=== PATIENT | female | born 1935 | race Caucasian/White ===

== ENCOUNTER 2018-09-13 21:48 | Emergency (ER) | payer MEDICARE, BC ==
[2018-09-13 22:54] LABS: #Basophils 0.1 thou/uL (0.0-0.2); #Eosinphils 0.1 thou/uL (0.0-0.7); #Lymphocytes 3.9 thou/uL (1.20-3.40); #Monocytes 1.4 thou/uL (0.11-0.59); #Neutrophils 8.9 thou/uL (1.40-6.50); %Basophils 0.4 % (0.0-1.0); %Eosinophils 0.5 % (0.0-10.0); %Lymphocytes 27.4 % (21.0-51.0); %Monocytes 9.8 % (0.0-10.0); %Neutrophils 61.9 % (42.0-75.0); Hemoglobin 13.7 g/dL (12.0-16.0); Mean Corpuscular HGB CONC 32.7 g/dL (32.0-36.0); Mean Corpuscular Hemoglobin 31.4 pg (27.0-31.0); Platelet Count 266 thou/uL (130-400); RBC Distribution Width 12.3 % (11.5-14.5); Red Blood Cell (RBC) Count 4.37 mill/uL (4.20-5.40); White Blood Cell (WBC) Count 14.4 thou/uL (4.8-10.8)
[2018-09-13 23:17] LABS: ALT (SGPT) 21 U/L (8-55); AST (SGOT) 20 U/L (5-34); Albumin 4.2 g/dL (3.4-4.8); Alkaline Phosphatase 101 U/L (40-150); Anion Gap 13 mmol/L (10-20); BUN (Urea Nitrogen) 25 mg/dL (9.8-20.1); Bilirubin, Total 0.3 mg/dL (0.2-1.2); CK (CPK) 41 U/L (29-168); Calc. Creatinine Clearance 0 mL/min (70-130); Calcium 10.2 mg/dL (7.8-10.44); Carbon Dioxide 25 mmol/L (23-31); Chloride 107 mmol/L (98-107); Estimated GFR-MDRD 68; Globulin 2.3 g/dL (2.4-3.5); Glucose 126 mg/dL (83-110); Potassium 4.1 mmol/L (3.5-5.1); Protein, Total 6.5 g/dL (6.0-8.3); Sodium 141 mmol/L (136-145)
[2018-09-13 23:49] LABS: Bilirubin Negative (Negative); Blood, Urine Negative (Negative); Clarity CLEAR (Clear); Glucose, Urine (Dipstick) Negative (Negative); Leukocyte Negative (Negative); Nitrite Negative (Negative); Protein, Urine (Dipstick) Negative (Neg-Trace); Specific Gravity, Urine 1.017 (1.002-1.036); Urobilinogen 0.2 mg/dL (0.2-1.0)
[2018-09-13] MEDS ORDERED: cloNIDine 0.1 MG TAB ONE (23:52)
--- NOTE | 2018-09-14 00:41 | CT ---
CT brain. HISTORY: Dizziness. Noncontrast enhanced CT images of the brain obtained from base the skull to the vertex. Brain and bon e windows obtained. CT images demonstrate no evidence of intracranial masses, hemorrhages, strokes or contusions. Ventric les are of normal size. IMPRESSION: normal CT brain.
== END 2018-09-14 01:32 | disposition home or self-care (01) ==
LOC: ERS 21:48
DX: I10 Essential (primary) hypertension (principal); M19.90 Unspecified osteoarthritis, unspecified site; I47.1 Supraventricular tachycardia; F41.9 Anxiety disorder, unspecified; F32.9 Major depressive disorder, single episode, unspecified; Z79.899 Other long term (current) drug therapy
CPT/HCPCS: 36415; 70450; 80053; 81003; 82550; 84484; 85025; 87086; 93005

== ENCOUNTER 2018-10-04 09:16 | Outpatient (CLI) | payer MEDICARE, BC ==
--- NOTE | 2018-10-04 09:43 | SJPRAD ---
Right knee 2 views HISTORY: Right knee pain. FINDINGS: Joint spaces are preserved. Moderate tricompartmental osteophytosis. No acute fracture, dis location, or fluid distention of the suprapatellar bursa. IMPRESSION: Mild osteoarthritic changes right knee
--- NOTE | 2018-10-04 11:29 | SJPRAD ---
RIGHT HIP 2 VIEWS: HISTORY: Pain in right lower extremity. FINDINGS: There are degenerative changes at the right hip. Femoral head contour is normal. No fracture or acu te abnormality is seen. IMPRESSION: No acute abnormality identified. POS: [facility]
== END 2018-10-04 09:17 | disposition home or self-care (01) ==
LOC: MWLC RAD 09:16
PROVIDERS: ATTEND Family Medicine
DX: M79.604 Pain in right leg (principal); M17.11 Unilateral primary osteoarthritis, right knee

== ENCOUNTER 2018-11-08 09:16 | Outpatient (CLI) | payer MEDICARE, BC ==
--- NOTE | 2018-11-08 09:39 | SJPRAD ---
3 VIEWS OF THE LUMBAR SPINE: Date: 11/08/18 COMPARISON: None. HISTORY: Low back pain. FINDINGS: The lateral examination demonstrates normal vertebral body height and alignment. The patient appears status post bilateral L5 laminectomy. There is multilevel disc space narrowing with degenerative endplate change and osteophyte formation w ithin the lumbar spine, most significant at the L1-2, L3-4, and L4-5 levels. There is multilevel lower lumbar spine facet hypertrophy. No acute osseous abnormality is noted. IMPRESSION: Multilevel lumbar spine degenerative change as detailed above. Lower lumbar spine degenerative change as detailed above. Transcribed Date/Time: 11/08/2018 11:16 AM
== END 2018-11-08 09:17 | disposition home or self-care (01) ==
LOC: MWLC RAD 09:16
PROVIDERS: ATTEND Family Medicine
DX: M54.5 Low back pain (principal); M47.816 Spondylosis without myelopathy or radiculopathy, lumbar region; M25.78 Osteophyte, vertebrae

== ENCOUNTER 2018-12-14 12:32 | Outpatient (CLI) | payer MEDICARE, BC ==
--- NOTE | 2018-12-14 14:03 | MRI ---
MRI THORACIC SPINE WITHOUT CONTRAST: HISTORY: Thoracic radiculopathy. COMPARISON: None FINDINGS: Heterogeneous T1 marrow signal intensity due to a combination of senescent change as well as type II Modic changes. Vertebral body height is maintained. No fracture. No significant STIR hyperintensity to suggest vertebral body edema or ligamentous injury. Visualized mediastinum, lung parenchyma, paraspinal muscles/soft tissue are unremarkable. There is an exophytic cyst emanating from the left kidney. The thoracic cord has a normal size and signal intensity. No cord malacia. No cord expansion. No cord T2 hyperintensity. Conus medullaris terminates at the upper aspect of L1. There is evidence of cervical fusion involving C6 and C7, incompletely evaluated. T4-T5: Central disc protrusion. Disc material contacts and deforms the ventral cord. No cord hyperint ensity. Mild to moderate central canal stenosis. T5-T6: Generalized disc bulge. There is mass effect upon the ventral thecal sac and left hemicord. Mi ld central canal stenosis. T6-T7: Generalized disc bulge. Mild central canal stenosis. Neural foramina are patent. T7-T8: Broad-based disc bulge. Mild central canal stenosis. T8-T9 and T9-T10 demonstrate loss of disc space height. No significant central canal stenosis. T10-T11 and T11-T12 demonstrates loss of disc space height without significant central canal stenosis . Throughout the thoracic spine, neural foramina are patent. IMPRESSION: Multilevel degenerative changes of the thoracic spine as described above. Transcribed Date/Time: 12/14/2018 2:16 PM
== END 2018-12-14 12:33 | disposition home or self-care (01) ==
LOC: BICMRI 12:32
PROVIDERS: ATTEND Specialist
DX: M47.24 Other spondylosis with radiculopathy, thoracic region (principal)
CPT/HCPCS: 72146

== ENCOUNTER 2019-01-07 13:51 | Outpatient (CLI) | payer MEDICARE, BC ==
--- NOTE | 2019-01-18 11:47 | MMO ---
Bilateral MAMMO Bilat Screen [facility]. CLINICAL HISTORY: Patient is 83 years old and is seen for screening. The patient has no family history of breast cancer. The patient has no personal history of cancer. 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 VIEWS: The views performed were: bilateral craniocaudal with tomosynthesis; bilateral mediolateral oblique with tomosynthesis; and bilateral Implant displaced with tomosynthesis. FILMS COMPARED: The present examination has been compared to prior imaging studies performed at [facility] on 09/27/2013, 01/04/2016 and 02/05/2018. This study has been interpreted with the assistance of computer-aided detection. MAMMOGRAM FINDINGS: There are scattered fibroglandular densities. Finding 1: Normal implants are present. Finding 2: There are stable post operative changes seen in the right breast. Finding 3: There are stable benign appearing calcifications seen in the left breast. There are no suspicious masses, suspicious calcifications, or new areas of architectural distortion. IMPRESSION: THERE IS NO MAMMOGRAPHIC EVIDENCE OF MALIGNANCY. A ROUTINE FOLLOW-UP MAMMOGRAM IN 1 YEAR IS RECOMMENDED. THE RESULTS OF THIS EXAM WERE SENT TO THE PATIENT. ACR BI-RADS Category 2 - Benign finding MAMMOGRAPHY NOTE: 1. A negative mammogram report should not delay a biopsy if a dominant of clinically suspicious mass is present. 2. Approximately 10% to 15% of breast cancers are not detected by mammography. 3. Adenosis and dense breasts may obscure an underlying neoplasm. Reported by: SALENA MARTINEZ MD Electonically Signed: [id number]
== END 2019-01-07 13:52 | disposition home or self-care (01) ==
LOC: BICMAMMO 13:51
PROVIDERS: ATTEND Family Medicine
DX: Z12.31 Encounter for screening mammogram for malignant neoplasm of breast (principal); Z98.82 Breast implant status
CPT/HCPCS: 77063; 77067

== ENCOUNTER 2019-03-18 09:25 | Outpatient (CLI) | payer MEDICARE, BC ==
--- NOTE | 2019-03-18 11:14 | ULT ---
Renal ultrasound: 03/18/2019 COMPARISON: None HISTORY: Evaluate renal cyst noted on prior MRI TECHNIQUE: Multiplanar grayscale sonographic imaging of the kidneys and urinary bladder obtained FINDINGS: Shadowing from bowel gas limits assessment of both kidneys, particularly the upper poles. R ight kidney measures 10.7 x 4.8 x 4.3 cm and left kidney measures 10.8 x 5.1 x 5.6 cm. No hydronephrosis or renal stone disease apparent on either side. There is a cyst emanating from the upper pole of the left kidney measuring approximately 2 cm. Urinary bladder grossly unremarkable. IMPRESSION: 2 cm cyst upper pole left kidney.
== END 2019-03-18 09:26 | disposition home or self-care (01) ==
LOC: BICULT 09:25
PROVIDERS: ATTEND Specialist
DX: N28.89 Other specified disorders of kidney and ureter (principal); N28.1 Cyst of kidney, acquired
CPT/HCPCS: 76770

== ENCOUNTER 2019-06-08 09:21 | Outpatient (CLI) | payer MEDICARE ==
--- NOTE | 2019-06-08 11:41 | MRI ---
MRI of thelumbar spine with and without contrast: 06/08/2019 COMPARISON:None available HISTORY:Bilateral lower extremity weakness, lumbar stenosis TECHNIQUE: Multiplanar multisequence MR imaging of thelumbar spine with and without contrast Findings:Sagittal STIR imaging demonstrates no focal area of osseous marrow edema. No significant ant erolisthesis or retrolisthesis noted within the lumbar spine. On the basis of 5 lumbar type vertebral bodies, conus medullaris terminates at L1-2. T12-L1: Mild bilateral facet hypertrophy. Intervertebral disc height and signal intensity within norm al limits with no significant central canal or neural foraminal stenosis. L1-2: There is disc space narrowing with disc desiccation, mild disc bulge, and anterior osteophyte f ormation. Mild bilateral facet hypertrophy. No significant central canal or neural foraminal stenosis. L2-3: There is disc desiccation and mild disc bulge. Bilateral facet hypertrophy. Mild central canal stenosis. Mild bilateral neural foraminal stenosis. L3-4: There is disc space narrowing with degenerative endplate change, anterior osteophyte formation, and disc bulge. Bilateral facet hypertrophy noted as well. There is moderate/severe central canal stenosis. No neural foraminal stenosis. L4-5: There is disc space narrowing and degenerative endplate change. Lateral facet hypertrophy noted . No significant central canal stenosis. There is mild left neural foraminal stenosis. Bilateral laminectomy changes are noted. L5-S1: Bilateral laminectomy changes are noted. Bilateral facet hypertrophy. There is disc space narr owing with degenerative endplate change and disc desiccation. No significant central canal stenosis. Mild bilateral neural foraminal stenosis. The postcontrast imaging demonstrates no abnormal enhancement within the lumbar spine. The imaged retroperitoneal structures demonstrate no acute findings. IMPRESSION:Multilevel postoperative and degenerative change within the lumbar spine. Most significant findings are at the L3-4 level.
[2019-06-08] MEDS ORDERED: Magnevist 469MG/ML 20 ML VIAL ONE (16:15)
== END 2019-06-08 09:22 | disposition home or self-care (01) ==
LOC: TBSIIMAG 09:21
PROVIDERS: ATTEND Neurological Surgery
DX: M48.061 Spinal stenosis, lumbar region without neurogenic claudication (principal); M47.816 Spondylosis without myelopathy or radiculopathy, lumbar region
CPT/HCPCS: 72158; 82565; A9579

== ENCOUNTER 2020-06-09 11:46 | Emergency (ER) | payer MEDICARE ==
[2020-06-09] MEDS ORDERED: Ketorolac Tromethamine 30 MG/ML VIAL ONE (12:04)
--- NOTE | 2020-06-09 14:22 | RAD ---
RIGHT KNEE 4 VIEWS: Date: 06/09/2020 HISTORY: Right knee swelling for several days without recent trauma. FINDINGS: Tricompartment arthrosis and degenerative changes. No acute fracture or dislocation. IMPRESSION: No fracture or dislocation. Tricompartment arthrosis and degenerative change. POS: [facility]
[2020-06-09 14:46] LABS: #Basophils 0.1 thou/uL (0.0-0.2); #Lymphocytes 3.7 thou/uL (1.20-3.40); #Monocytes 1.8 thou/uL (0.11-0.59); #Neutrophils 9.3 thou/uL (1.40-6.50); %Basophils 0.5 % (0.0-1.0); %Eosinophils 0.2 % (0.0-10.0); %Lymphocytes 24.9 % (21.0-51.0); %Monocytes 12.2 % (0.0-10.0); %Neutrophils 62.2 % (42.0-75.0); Hemoglobin 13.2 g/dL (12.0-16.0); Mean Corpuscular HGB CONC 34.2 g/dL (32.0-36.0); Mean Corpuscular Hemoglobin 33.7 pg (27.0-31.0); Mean Corpuscular Volume 98.5 fL (78.0-98.0); Mean Platelet Volume 8.2 fL (7.4-10.4); Platelet Count 260 thou/uL (130-400); Red Blood Cell (RBC) Count 3.91 mill/uL (4.20-5.40); White Blood Cell (WBC) Count 14.9 thou/uL (4.8-10.8)
== END 2020-06-09 16:20 | disposition home or self-care (01) ==
LOC: ERS 11:46
DX: M25.561 Pain in right knee (principal); M19.90 Unspecified osteoarthritis, unspecified site; M79.7 Fibromyalgia; Z79.899 Other long term (current) drug therapy
CPT/HCPCS: 36415; 85025; 85652; 86140; 96372; J1885

== ENCOUNTER 2020-10-02 09:31 | Outpatient (CLI) | payer MEDICARE ==
[~2020-10-02 09:31] MED LIST: Magnevist 469MG/ML 20 ML VIAL ONE
== END 2020-10-02 09:32 | disposition home or self-care (01) ==
LOC: BICMRI 09:31
PROVIDERS: ATTEND Specialist
DX: M48.062 Spinal stenosis, lumbar region with neurogenic claudication (principal); M47.816 Spondylosis without myelopathy or radiculopathy, lumbar region; M48.061 Spinal stenosis, lumbar region without neurogenic claudication; Z98.890 Other specified postprocedural states
CPT/HCPCS: 72158; 82565

== ENCOUNTER 2021-09-17 10:44 | Outpatient (CLI) | payer MEDICARE | END 2021-09-17 10:45 | disposition home or self-care (01) | LOC: BICMAMMO 10:44 | PROVIDERS: ATTEND Family Medicine | DX: M81.0 Age-related osteoporosis without current pathological fracture (principal); M85.852 Other specified disorders of bone density and structure, left thigh | CPT/HCPCS: 77080 ==

== ENCOUNTER 2021-11-21 10:36 | Outpatient (CLI) | payer MEDICARE ==
[2021-11-21 12:16] LABS: #Basophils 0.1 10x3/uL (0.0-0.2); #Eosinphils 0.1 10x3/uL (0.0-0.5); #Monocytes 0.9 10x3/uL (0.0-1.1); #Neutrophils 5.9 10x3/uL (1.5-8.4); %Basophils 0.7 % (0.0-2.0); %Eosinophils 1.3 % (0.0-6.0); %Lymphocytes 29.1 % (18.0-47.0); %Monocytes 9.3 % (0.0-10.0); %Neutrophils 59.3 % (40.0-75.0); Hemoglobin 13.3 g/dL (12.0-15.5); Mean Corpuscular HGB CONC 33.3 g/dL (32.0-36.0); Mean Corpuscular Hemoglobin 31.4 pg (27.0-33.0); Mean Corpuscular Volume 94.3 fl (81.6-98.3); Mean Platelet Volume 11.7 fl (7.4-10.4); Platelet Count 331 10x3/uL (150-450); RBC Distribution Width 14.8 % (11.5-14.5); Red Blood Cell (RBC) Count 4.24 10x6/uL (3.90-5.03)
[2021-11-21 12:19] LABS: INR-International Normal Ratio 0.9; Prothrombin Time 9.7 sec (9.5-12.1)
[2021-11-21 12:24] LABS: Anion Gap 15 mmol/L (10-20); BUN (Urea Nitrogen) 21 mg/dL (9.8-20.1); Calc. Creatinine Clearance 0 mL/min (70-130); Calcium 9.4 mg/dL (7.8-10.44); Carbon Dioxide 25 mmol/L (23-31); Chloride 105 mmol/L (98-107); Estimated GFR 71; Glucose 115 mg/dL (83-110); Potassium 4.4 mmol/L (3.5-5.1); Sodium 141 mmol/L (136-145)
== END 2021-11-21 10:37 | disposition home or self-care (01) ==
LOC: LABBT 10:36
PROVIDERS: ATTEND Orthopaedic Surgery
DX: Z01.818 Encounter for other preprocedural examination (principal); M16.11 Unilateral primary osteoarthritis, right hip; Z20.822 Contact with and (suspected) exposure to COVID-19
CPT/HCPCS: 80048; 85025; 85610; 87081; 87811; 93005; 93010

== ENCOUNTER 2021-11-26 06:36 | Inpatient (IN) | payer MEDICARE ==
[2021-11-22 16:12] VITALS: BMI 31.1
[2021-11-26] MEDS ORDERED: Bupivacaine PF 0.5% 30 ML VIAL ONE (06:53)
[2021-11-26] MEDS ORDERED: Sodium Chloride 0.9% 100 ML ONE ×2 (06:53→06:59)
[2021-11-26] MEDS ORDERED: CEFAZOLIN 2 GM VIAL ONE (06:53)
[2021-11-26] MEDS ORDERED: Vancomycin 1 GM/200 ML BAG ONE (06:59)
[2021-11-26] MEDS ORDERED: Tranexamic Acid 1,000 MG/10 ML VIAL ONE (06:59)
[2021-11-26] MEDS ORDERED: Midazolam HCl 2 mg/2 ml Vial ONE (07:58)
[2021-11-26] MEDS ORDERED: Fentanyl 100 MCG/2 ML VIAL ONE ×3 (07:58→13:36)
[2021-11-26] MEDS ORDERED: Acetaminophen 325 MG TAB PO PRN (08:49)
[2021-11-26] MEDS ORDERED: diphenhydrAMINE 25 MG CAP PO PRN (08:49)
[2021-11-26] MEDS ORDERED: Promethazine HCl 25 MG/ML VIAL IM PRN (08:49)
[2021-11-26] MEDS ORDERED: Ondansetron PF 4 MG/2 ML Vial IVP PRN (08:49)
[2021-11-26] MEDS ORDERED: traMADol HCl 50 MG TAB PO PRN (08:49)
[2021-11-26] MEDS ORDERED: fentaNYL Citrate/PF 100 MCG/2 ML SYRINGE ONE (08:56)
[2021-11-26] MEDS ORDERED: PROPOFOL 40 ML ONE (08:58)
[2021-11-26] MEDS ORDERED: Non-Formulary Item 1 EACH (Omeprazole [Omeprazole] 40 MG Capsule.Dr) PO SCH (09:00)
[2021-11-26] MEDS ORDERED: Ergocalciferol 1.25 MG(50,000 UNITS) CAP PO SCH (09:00)
[2021-11-26] MEDS ORDERED: Non-Formulary Item 1 EACH (Estradiol [Estradiol] 0.5 MG Tablet) PO SCH (09:00)
[2021-11-26] MEDS: Senokot S 8.6-50 MG TAB PO SCH ×2 (09:00→20:21)
[2021-11-26] MEDS ORDERED: ceFAZolin 2 GM/Dextrose 50 ML 2 GM in Premix Bag 1 BAG IVPB SCH (09:00)
[2021-11-26] MEDS: Primidone 50 MG TAB PO SCH (09:00)
[2021-11-26] MEDS ORDERED: Non-Formulary Item 1 EACH (Cholecalciferol (Vitamin D3) [Vitamin D3] 1,250 MCG Capsule) PO SCH (09:00)
[2021-11-26] MEDS: Ferrous Gluconate 324 MG TAB PO SCH ×2 (09:00→20:21)
[2021-11-26] MEDS: Multivitamin W/ Minerals 1 TAB PO SCH (09:00)
[2021-11-26] MEDS: Aspirin 81 mg Enteric Coated Tablet PO SCH ×2 (09:00→20:21)
[2021-11-26] MEDS ORDERED: Non-Formulary Item 1 EACH (Buspirone Hcl [Buspirone Hcl] 30 MG Tablet) PO SCH (09:00)
[2021-11-26] MEDS ORDERED: Lidocaine 1% PF 5 ML VIAL ONE (09:11)
[2021-11-26] MEDS ORDERED: ePHEDrine 50 MG/ML VIAL ONE (09:11)
[2021-11-26] MEDS ORDERED: Dexamethasone 20 MG/5 ML VIAL ONE (09:11)
[2021-11-26] MEDS ORDERED: Rocuronium Bromide 10 MG/ML (10ML VIAL) ONE (09:11)
[2021-11-26] MEDS ORDERED: Bupivacaine HCl 0.5%/Epinephrine 1:200,000/PF 30 ml Vial ONE (09:11)
[2021-11-26] MEDS ORDERED: PROPOFOL 200 MG/20 ML VIAL ONE (09:11)
[2021-11-26] MEDS ORDERED: Ondansetron PF 4 MG/2 ML Vial ONE (09:11)
[2021-11-26] MEDS ORDERED: SUGAMMADEX SODIUM 200 MG/2 ML VIAL ONE (10:40)
[2021-11-26] MEDS: HYDROcodone/Acetaminophen 10/325 mg Tablet PO PRN ×2 (15:01→20:21)
[2021-11-26] MEDS: CEFAZOLIN 2 GM in Sodium Chloride 0.9% 100 ML IVPB SCH ×2 (16:50→20:22)
[2021-11-26] MEDS: Dextrose 5 %-0.45 % NaCl 1,000 ML IV SCH ×2 (16:51→19:01)
[2021-11-26] MEDS: traMADol HCl 50 MG TAB PO PRN ×2 (16:58→22:25)
[2021-11-26] MEDS: Hydrochlorothiazide 25 MG TAB PO SCH (17:07)
[2021-11-26] MEDS: Fentanyl 100 MCG/2 ML VIAL SLOW IVP PRN ×2 (18:56→23:20)
[2021-11-26] MEDS: Zolpidem Tartrate 5 MG TAB PO PRN (22:25)
[2021-11-27] MEDS: Dextrose 5 %-0.45 % NaCl 1,000 ML IV SCH ×2 (00:31→17:48)
[2021-11-27 06:59] LABS: Hemoglobin 13.9 g/dL (12.0-16.0); Mean Corpuscular HGB CONC 32.5 g/dL (32.0-36.0); Mean Corpuscular Hemoglobin 32.5 pg (27.0-31.0); Mean Corpuscular Volume 99.8 fL (78.0-98.0); Mean Platelet Volume 9.3 fL (7.4-10.4); Platelet Count 286 thou/uL (130-400); RBC Distribution Width 12.5 % (11.5-14.5); Red Blood Cell (RBC) Count 4.28 mill/uL (4.20-5.40); White Blood Cell (WBC) Count 24.6 thou/uL (4.8-10.8)
[2021-11-27] MEDS ORDERED: Methyl Salicylate/Menthol 85 GM TUBE TOP PRN (08:42)
[2021-11-27] MEDS ORDERED: busPIRone HCl 10 MG TAB PO SCH ×2 (09:00)
[2021-11-27] MEDS: Ferrous Gluconate 324 MG TAB PO SCH ×2 (09:58→20:29)
[2021-11-27] MEDS: Aspirin 81 mg Enteric Coated Tablet PO SCH ×2 (09:59→20:29)
[2021-11-27] MEDS: Estradiol 1 MG TAB PO SCH (09:59)
[2021-11-27] MEDS: Senokot S 8.6-50 MG TAB PO SCH ×2 (09:59→20:29)
[2021-11-27] MEDS: Multivitamin W/ Minerals 1 TAB PO SCH (09:59)
[2021-11-27] MEDS: HYDROcodone/Acetaminophen 10/325 mg Tablet PO PRN ×3 (10:00→17:41)
[2021-11-27] MEDS: Hydrochlorothiazide 25 MG TAB PO SCH (10:01)
[2021-11-27] MEDS ORDERED: buPROPion HCl 100 MG TAB PO SCH (13:30)
[2021-11-27] MEDS: Fentanyl 100 MCG/2 ML VIAL SLOW IVP PRN ×2 (15:26→20:28)
[2021-11-27] MEDS: Primidone 50 MG TAB PO SCH (17:33)
[2021-11-27] MEDS: Zolpidem Tartrate 5 MG TAB PO PRN (20:29)
[2021-11-28] MEDS: Dextrose 5 %-0.45 % NaCl 1,000 ML IV SCH ×2 (00:30→17:50)
[2021-11-28] MEDS: HYDROcodone/Acetaminophen 10/325 mg Tablet PO PRN ×4 (04:46→18:37)
[2021-11-28 06:00] LABS: Hemoglobin 12.8 g/dL (12.0-16.0); Mean Corpuscular Volume 99.9 fL (78.0-98.0); Mean Platelet Volume 9.1 fL (7.4-10.4); Platelet Count 261 thou/uL (130-400); RBC Distribution Width 12.9 % (11.5-14.5); White Blood Cell (WBC) Count 21.4 thou/uL (4.8-10.8)
[2021-11-28] MEDS ORDERED: buPROPion HCl 100 MG TAB PO SCH (09:00)
[2021-11-28] MEDS: Ferrous Gluconate 324 MG TAB PO SCH (09:27)
[2021-11-28] MEDS: Senokot S 8.6-50 MG TAB PO SCH (09:28)
[2021-11-28] MEDS: Hydrochlorothiazide 25 MG TAB PO SCH (09:28)
[2021-11-28] MEDS: Aspirin 81 mg Enteric Coated Tablet PO SCH (09:28)
[2021-11-28] MEDS: Estradiol 1 MG TAB PO SCH (09:28)
[2021-11-28] MEDS: Multivitamin W/ Minerals 1 TAB PO SCH (09:28)
[2021-11-28] MEDS: Primidone 50 MG TAB PO SCH (10:39)
[2021-11-28] MEDS: traMADol HCl 50 MG TAB PO PRN ×2 (10:40→16:13)
[2021-11-28 16:17] VITALS: BP 135/79; TEMP 98.4
== END 2021-11-28 19:25 | DRG 470 ==
LOC: SDC 06:36 → SURG A 14:28 → OBSVTOIN 11-27 16:37
PROVIDERS: ADMIT Orthopaedic Surgery; ATTEND Orthopaedic Surgery
PROC: 0SR90J9 Replacement of Right Hip Joint with Synthetic Substitute, Cemented, Open Approach (ICD-10-PCS; principal; 2021-11-26)
PROC: 3E0T3BZ Introduction of Anesthetic Agent into Peripheral Nerves and Plexi, Percutaneous Approach (ICD-10-PCS; 2021-11-26)
DX: M16.11 Unilateral primary osteoarthritis, right hip (principal); Z20.822 Contact with and (suspected) exposure to COVID-19; G47.00 Insomnia, unspecified; H90.5 Unspecified sensorineural hearing loss; I10 Essential (primary) hypertension; Z96.652 Presence of left artificial knee joint; I48.91 Unspecified atrial fibrillation; M17.11 Unilateral primary osteoarthritis, right knee; Z98.890 Other specified postprocedural states; Z82.49 Family history of ischemic heart disease and other diseases of the circulatory system; Z80.0 Family history of malignant neoplasm of digestive organs; Z81.8 Family history of other mental and behavioral disorders
CPT/HCPCS: 36415; 85027; C1776; G0378; J0690; J1100; J2250; J2405; J2704; J3010; J3370; J3490; J7042; S0020

== ENCOUNTER 2021-12-15 14:03 | Emergency (ER) | payer MEDICARE ==
[2021-12-15 15:01] LABS: #Lymphocytes 2.5 thou/uL (1.20-3.40); #Monocytes 1.2 thou/uL (0.11-0.59); #Neutrophils 13.4 thou/uL (1.40-6.50); %Basophils 0.1 % (0.0-1.0); %Eosinophils 0.2 % (0.0-10.0); %Lymphocytes 14.7 % (21.0-51.0); Hemoglobin 12.5 g/dL (12.0-16.0); Mean Corpuscular HGB CONC 33.1 g/dL (32.0-36.0); Mean Corpuscular Hemoglobin 32.6 pg (27.0-31.0); Mean Corpuscular Volume 98.7 fL (78.0-98.0); Platelet Count 509 thou/uL (130-400); RBC Distribution Width 13.7 % (11.5-14.5); Red Blood Cell (RBC) Count 3.84 mill/uL (4.20-5.40); White Blood Cell (WBC) Count 17.1 thou/uL (4.8-10.8)
[2021-12-15 15:24] LABS: ALT (SGPT) 24 U/L (8-55); AST (SGOT) 25 U/L (5-34); Albumin 3.6 g/dL (3.4-4.8); Alkaline Phosphatase 158 U/L (40-110); Anion Gap 13 mmol/L (10-20); BUN (Urea Nitrogen) 13 mg/dL (9.8-20.1); Bilirubin, Total 0.4 mg/dL (0.2-1.2); Calc. Creatinine Clearance 0 mL/min (70-130); Calcium 9.2 mg/dL (7.8-10.44); Carbon Dioxide 29 mmol/L (23-31); Chloride 101 mmol/L (98-107); Estimated GFR 84; Globulin 3.2 g/dL (2.4-3.5); Glucose 114 mg/dL (83-110); Lipase 4 U/L (8-78); Potassium 3.2 mmol/L (3.5-5.1); Protein, Total 6.8 g/dL (5.8-8.1); Sodium 140 mmol/L (136-145)
== END 2021-12-15 16:55 | disposition home or self-care (01) ==
LOC: ERS 14:03
DX: K52.9 Noninfective gastroenteritis and colitis, unspecified (principal); I47.1 Supraventricular tachycardia; Z79.899 Other long term (current) drug therapy
CPT/HCPCS: 36415; 74177; 80053; 83605; 83690; 85025

== ENCOUNTER 2022-06-12 13:43 | Outpatient (CLI) | payer MEDICARE | END 2022-06-12 13:44 | disposition home or self-care (01) | LOC: TBSIIMAG 13:43 | PROVIDERS: ATTEND Nurse Practitioner Family | DX: M48.062 Spinal stenosis, lumbar region with neurogenic claudication (principal); M51.36 Other intervertebral disc degeneration, lumbar region | CPT/HCPCS: 72148 ==

== ENCOUNTER 2022-09-02 13:26 | Outpatient (CLI) | payer MEDICARE ==
[2022-09-02 14:22] LABS: Hemoglobin 13.3 g/dL (12.0-15.5); Mean Corpuscular HGB CONC 33.5 g/dL (32.0-36.0); Mean Corpuscular Hemoglobin 30.8 pg (27.0-33.0); Mean Corpuscular Volume 91.9 fl (81.6-98.3); Mean Platelet Volume 11.2 fl (7.4-10.4); Platelet Count 371 10x3/uL (150-450); RBC Distribution Width 14.8 % (11.5-14.5); Red Blood Cell (RBC) Count 4.32 10x6/uL (3.90-5.03); White Blood Cell (WBC) Count 13.4 10x3/uL (3.5-10.5)
[2022-09-02 14:30] LABS: Anion Gap 15 mmol/L (10-20); BUN (Urea Nitrogen) 25 mg/dL (9.8-20.1); Calc. Creatinine Clearance 0 mL/min (70-130); Calcium 9.2 mg/dL (7.8-10.44); Carbon Dioxide 24 mmol/L (23-31); Chloride 106 mmol/L (98-107); Estimated GFR 70; Glucose 75 mg/dL (83-110); Sodium 141 mmol/L (136-145)
== END 2022-09-02 13:27 | disposition home or self-care (01) ==
LOC: LABBT 13:26
PROVIDERS: ATTEND Neurological Surgery
DX: Z01.812 Encounter for preprocedural laboratory examination (principal); M54.16 Radiculopathy, lumbar region
CPT/HCPCS: 80048; 85027

== ENCOUNTER 2022-09-05 05:37 | Day surgery (SDC) | payer MEDICARE ==
[2022-09-02 13:41] VITALS: BMI 30.2
[2022-09-05] MEDS ORDERED: Bupivacaine HCl 0.5%/Epinephrine 1:200,000/PF 30 ml Vial ONE (06:10)
[2022-09-05] MEDS ORDERED: Thrombin 5000 UNITS/5 ML VIAL ONE (06:10)
[2022-09-05] MEDS ORDERED: fentaNYL PF 100 MCG/2 ML SYRINGE ONE (06:16)
[2022-09-05] MEDS ORDERED: Ketamine In 0.9 % NaCl 50 MG/5 ML SYRINGE ONE (06:17)
[2022-09-05] MEDS ORDERED: Sodium Chloride 0.9% 100 ML ONE ×2 (06:44→11:00)
[2022-09-05] MEDS ORDERED: CEFAZOLIN 2 GM VIAL ONE ×2 (06:44→11:00)
[2022-09-05] MEDS ORDERED: MINERAL OIL/WHITE PETROLATUM 3.5 GM TUBE ONE (06:55)
[2022-09-05] MEDS ORDERED: Rocuronium Bromide 10 MG/ML (10ML VIAL) ONE (07:01)
[2022-09-05] MEDS ORDERED: Esmolol 100 MG/10 ML VIAL ONE (07:01)
[2022-09-05] MEDS ORDERED: Dexamethasone 20 MG/5 ML VIAL ONE (07:01)
[2022-09-05] MEDS ORDERED: Lidocaine 1% PF 5 ML VIAL ONE (07:01)
[2022-09-05] MEDS ORDERED: Ondansetron PF 4 MG/2 ML Vial ONE (07:01)
[2022-09-05] MEDS ORDERED: PROPOFOL 200 MG/20 ML VIAL ONE (07:01)
[2022-09-05] MEDS ORDERED: SUGAMMADEX SODIUM 200 MG/2 ML VIAL ONE (08:06)
[2022-09-05] MEDS ORDERED: hydrALAZINE 20 MG/ML VIAL ONE (08:27)
[2022-09-05] MEDS ORDERED: fentaNYL 50 mcg/mL 1 mL Vial ONE (08:32)
[2022-09-05] MEDS ORDERED: Acetaminophen/Codeine 30-300mg Tablet ONE (09:41)
[2022-09-05] MEDS ORDERED: Cyclobenzaprine 10 MG TAB ONE (11:00)
== END 2022-09-05 13:03 | disposition home or self-care (01) ==
LOC: SDC 05:37
PROVIDERS: ATTEND Neurological Surgery
PROC: 01NB0ZZ Release Lumbar Nerve, Open Approach (ICD-10-PCS; principal; 2022-09-05)
DX: M48.062 Spinal stenosis, lumbar region with neurogenic claudication (principal); M54.16 Radiculopathy, lumbar region; G89.29 Other chronic pain; M19.90 Unspecified osteoarthritis, unspecified site; I10 Essential (primary) hypertension; Z79.899 Other long term (current) drug therapy; Z91.048 Other nonmedicinal substance allergy status; Z98.890 Other specified postprocedural states
CPT/HCPCS: 63047; J0360; J3010; J1100; J2405; J2704; J3490

== ENCOUNTER 2022-10-09 14:42 | Outpatient (CLI) | payer MEDICARE, OTHER | END 2022-10-09 14:43 | disposition home or self-care (01) | LOC: SCSRAD 14:42 | PROVIDERS: ATTEND Physician Assistant | DX: M54.50 Low back pain, unspecified (principal); R10.2 Pelvic and perineal pain; M47.816 Spondylosis without myelopathy or radiculopathy, lumbar region; Z98.890 Other specified postprocedural states | CPT/HCPCS: 72100; 72170 ==

== ENCOUNTER 2023-02-06 09:15 | Emergency (ER) | payer MEDICARE ==
[2023-02-06] MEDS ORDERED: Ketorolac Tromethamine 30 MG/ML VIAL ONE (09:41)
[2023-02-06] MEDS ORDERED: Morphine 4 MG/ML VIAL ONE (09:41)
[2023-02-06] MEDS ORDERED: Ondansetron PF 4 MG/2 ML Vial ONE (09:41)
[2023-02-06] MEDS ORDERED: Iopamidol-370 76% 500 ML MDV (1 ML CHARGE) ONE (10:06)
[2023-02-06 10:11] LABS: #Basophils 0.1 thou/uL (0.0-0.2); #Eosinphils 0.3 thou/uL (0.0-0.7); #Monocytes 1.3 thou/uL (0.11-0.59); #Neutrophils 4.5 thou/uL (1.40-6.50); %Basophils 0.8 % (0.0-1.0); %Eosinophils 2.6 % (0.0-10.0); %Lymphocytes 35.3 % (21.0-51.0); %Monocytes 13.8 % (0.0-10.0); %Neutrophils 47.4 % (42.0-75.0); Hematocrit 38.4 % (36.0-47.0); Hemoglobin 12.7 g/dL (12.0-16.0); Mean Corpuscular HGB CONC 33.1 g/dL (32.0-36.0); Mean Corpuscular Hemoglobin 30.8 pg (27.0-31.0); Mean Platelet Volume 11.2 fL (7.4-10.4); Platelet Count 364 10x3/uL (130-400); RBC Distribution Width 14.9 % (11.5-14.5); Red Blood Cell (RBC) Count 4.13 mill/uL (4.20-5.40); White Blood Cell (WBC) Count 9.6 10x3/uL (4.8-10.8)
[2023-02-06 10:33] LABS: ALT (SGPT) 23 U/L (8-55); AST (SGOT) 34 U/L (5-34); Albumin 4.1 g/dL (3.4-4.8); Alkaline Phosphatase 125 U/L (40-110); Anion Gap 13 mmol/L (10-20); BUN (Urea Nitrogen) 25 mg/dL (9.8-20.1); Bilirubin, Total 0.3 mg/dL (0.2-1.2); Calc. Creatinine Clearance 0 mL/min (70-130); Calcium 9.6 mg/dL (7.8-10.44); Carbon Dioxide 25 mmol/L (23-31); Chloride 106 mmol/L (98-107); Estimated GFR 71; Globulin 2.7 g/dL (2.4-3.5); Glucose 108 mg/dL (83-110); Potassium 4.1 mmol/L (3.5-5.1); Protein, Total 6.8 g/dL (5.8-8.1); Sodium 140 mmol/L (136-145)
== END 2023-02-06 12:35 | disposition home or self-care (01) ==
LOC: ERS 09:15
DX: M25.551 Pain in right hip (principal); I10 Essential (primary) hypertension; E78.00 Pure hypercholesterolemia, unspecified; Z79.899 Other long term (current) drug therapy
CPT/HCPCS: 74177; 80053; 85025; 96374; 96375; J1885; J2270; J2405; Q9967

== ENCOUNTER 2023-10-29 11:05 | Emergency (ER) | payer MEDICARE ==
[2023-10-29] MEDS ORDERED: Cyclobenzaprine 10 MG TAB ONE (11:54)
[2023-10-29] MEDS ORDERED: Ketorolac Tromethamine 30 MG (1 mL) VIAL ONE (11:54)
[2023-10-29] MEDS ORDERED: Morphine 4 MG/ML VIAL ONE (11:54)
[2023-10-29] MEDS ORDERED: Ondansetron PF 4 MG/2 ML Vial ONE (11:54)
[2023-10-29 12:33] LABS: #Basophils 0.06 10x3/uL (0.0-0.2); %Basophils 0.4 % (0.0-1.0); %Eosinophils 0.3 % (0.0-10.0); %Lymphocytes 16.5 % (21.0-51.0); %Monocytes 10.7 % (0.0-10.0); %Neutrophils 71.8 % (42.0-75.0); Hemoglobin 13.5 g/dL (12.0-16.0); Mean Corpuscular HGB CONC 33.8 g/dL (32.0-36.0); Mean Corpuscular Hemoglobin 30.8 pg (27.0-31.0); Mean Corpuscular Volume 91.3 fL (78.0-98.0); Mean Platelet Volume 11.6 fL (7.4-10.4); Platelet Count 335 10x3/uL (130-400); RBC Distribution Width 14.9 % (11.5-14.5); Red Blood Cell (RBC) Count 4.38 mill/uL (4.20-5.40)
[2023-10-29 13:21] LABS: ALT (SGPT) 20 U/L (8-55); AST (SGOT) 28 U/L (5-34); Albumin 3.3 g/dL (3.4-4.8); Alkaline Phosphatase 119 U/L (40-110); Anion Gap 15 mmol/L (10-20); BUN (Urea Nitrogen) 17 mg/dL (9.8-20.1); Bilirubin, Total 0.4 mg/dL (0.2-1.2); Calc. Creatinine Clearance 0 mL/min (70-130); Calcium 9.6 mg/dL (7.8-10.44); Carbon Dioxide 22 mmol/L (23-31); Chloride 108 mmol/L (98-107); Estimated GFR 80; Globulin 3.3 g/dL (2.4-3.5); Glucose 124 mg/dL (83-110); Protein, Total 6.6 g/dL (5.8-8.1); Sodium 141 mmol/L (136-145)
[2023-10-29] MEDS ORDERED: Dexamethasone 10 MG/ML VIAL ONE (14:39)
== END 2023-10-29 15:06 | disposition home or self-care (01) ==
LOC: ERS 11:05
DX: M62.838 Other muscle spasm (principal); I10 Essential (primary) hypertension
CPT/HCPCS: 80053; 85025; 93005; J1100; J1885; J2270; J2405; 96372; 96374; 96375

== ENCOUNTER 2023-11-14 19:28 | Observation (INO) | payer MEDICARE ==
[~2023-11-14 19:28] MED LIST changes: +Iopamidol-370 76% 500 ML MDV (1 ML CHARGE) ONE; -Magnevist 469MG/ML 20 ML VIAL ONE
[2023-11-14] MEDS ORDERED: methylPREDNISolone Sod Succ/PF 125 MG/2 ML VIAL ONE (21:07)
[2023-11-14] MEDS ORDERED: Morphine 4 MG/ML VIAL ONE (21:07)
[2023-11-14 21:43] LABS: #Basophils 0.05 10x3/uL (0.0-0.2); %Basophils 0.5 % (0.0-1.0); %Eosinophils 1.4 % (0.0-10.0); %Lymphocytes 36.4 % (21.0-51.0); %Neutrophils 46.4 % (42.0-75.0); Hematocrit 41.5 % (36.0-47.0); Hemoglobin 14.2 g/dL (12.0-16.0); Mean Corpuscular HGB CONC 34.2 g/dL (32.0-36.0); Mean Corpuscular Hemoglobin 30.7 pg (27.0-31.0); Mean Corpuscular Volume 89.6 fL (78.0-98.0); Mean Platelet Volume 11.7 fL (7.4-10.4); Platelet Count 199 10x3/uL (130-400); RBC Distribution Width 15.9 % (11.5-14.5); Red Blood Cell (RBC) Count 4.63 mill/uL (4.20-5.40)
[2023-11-14 21:47] LABS: ALT (SGPT) 29 U/L (8-55); AST (SGOT) 32 U/L (5-34); Albumin 3.6 g/dL (3.4-4.8); Alkaline Phosphatase 132 U/L (40-110); Anion Gap 14 mmol/L (10-20); BUN (Urea Nitrogen) 37 mg/dL (9.8-20.1); Bilirubin, Total 0.2 mg/dL (0.2-1.2); Calc. Creatinine Clearance 0 mL/min (70-130); Calcium 9.6 mg/dL (7.8-10.44); Carbon Dioxide 25 mmol/L (23-31); Chloride 106 mmol/L (98-107); Estimated GFR 44; Globulin 3.5 g/dL (2.4-3.5); Glucose 108 mg/dL (83-110); Magnesium 2.1 mg/dL (1.6-2.6); Potassium 4.8 mmol/L (3.5-5.1); Protein, Total 7.1 g/dL (5.8-8.1); Sodium 140 mmol/L (136-145)
[2023-11-14 22:01] LABS: Troponin I 0.144 ng/mL (< 0.028)
[2023-11-14 22:31] LABS: Magnesium 2.1 mg/dL (1.6-2.6)
[2023-11-14 23:52] LABS: Bacteria/HPF None Seen HPF (None Seen); Bilirubin Negative (Negative); Blood, Urine Negative (Negative); CAUTI Indications for Culture Pelvic or flank pain; Clarity Clear (Clear); Glucose, Urine (Dipstick) Normal (Negative); Ketone, Urine Negative (Negative); Leukocyte 250 Leu/uL (Negative); Nitrite Negative (Negative); Protein, Urine (Dipstick) Negative (Neg-Trace); Squamous Epithelial 0-3 HPF (0-3); Urobilinogen Normal mg/dL (Less than 2)
[2023-11-14 23:53] LABS: Specific Gravity, Urine 1.042 (1.002-1.036)
[2023-11-14 23:55] LABS: Urine Culture Reflex No No
[2023-11-14] MEDS ORDERED: Acetaminophen 325 MG TAB PO PRN (23:59)
[2023-11-14] MEDS ORDERED: Ondansetron PF 4 MG/2 ML Vial IVP PRN (23:59)
[2023-11-15] MEDS ORDERED: Methocarbamol 500 MG TAB ONE (00:20)
[2023-11-15 01:14] LABS: Troponin I Less than 0.010 ng/mL (< 0.028)
[2023-11-15 03:19] LABS: #Basophils Less than 0.03 10x3/uL (0.0-0.2); #Eosinphils Less than 0.03 10x3/uL (0.0-0.7); %Basophils 0.2 % (0.0-1.0); %Lymphocytes 21.6 % (21.0-51.0); %Monocytes 0.3 % (0.0-10.0); %Neutrophils 77.5 % (42.0-75.0); Hematocrit 40.6 % (36.0-47.0); Hemoglobin 13.6 g/dL (12.0-16.0); Mean Corpuscular HGB CONC 33.5 g/dL (32.0-36.0); Mean Corpuscular Hemoglobin 30.8 pg (27.0-31.0); Mean Corpuscular Volume 91.9 fL (78.0-98.0); Mean Platelet Volume 11.4 fL (7.4-10.4); Platelet Count 329 10x3/uL (130-400); RBC Distribution Width 15.7 % (11.5-14.5); Red Blood Cell (RBC) Count 4.42 mill/uL (4.20-5.40)
[2023-11-15 03:46] LABS: Troponin I Less than 0.010 ng/mL (< 0.028)
[2023-11-15 03:50] LABS: Anion Gap 17 mmol/L (10-20); BUN (Urea Nitrogen) 34 mg/dL (9.8-20.1); Calc. Creatinine Clearance 44 mL/min (70-130); Calcium 9.6 mg/dL (7.8-10.44); Carbon Dioxide 20 mmol/L (23-31); Chloride 106 mmol/L (98-107); Estimated GFR 51; Glucose 265 mg/dL (83-110); Potassium 3.8 mmol/L (3.5-5.1); Sodium 139 mmol/L (136-145)
[2023-11-15] MEDS: Sodium Chloride 0.9% 1,000 ML IV SCH (06:23)
[2023-11-15 08:56] VITALS: TEMP 97.2; BMI 31.1
[2023-11-15] MEDS: tiZANidine HCl 4 MG TAB PO PRN (10:29)
[2023-11-15] MEDS: Pantoprazole DR 40 MG TAB PO SCH (10:29)
[2023-11-15 12:09] LABS: Hemoglobin A1c 6.1 % (4.0-6.0)
[2023-11-15 12:15] LABS: Cardiac Risk 3.5 (Less than 4.5)
[2023-11-15 12:27] VITALS: BP 141/71
[2023-11-15] MEDS ORDERED: Atorvastatin Calcium 20 MG TAB PO SCH (21:00)
[2023-11-16] MEDS ORDERED: Aspirin 81 mg Enteric Coated Tablet PO SCH (09:00)
== END 2023-11-15 13:45 | disposition home or self-care (01) ==
LOC: ERS 19:28 → ERHOLD 23:59 → 2SW 11-15 08:37
PROVIDERS: ADMIT Internal Medicine; ATTEND Internal Medicine
DX: M54.6 Pain in thoracic spine (principal); I10 Essential (primary) hypertension; E78.5 Hyperlipidemia, unspecified; M79.7 Fibromyalgia; G89.29 Other chronic pain; F41.9 Anxiety disorder, unspecified; F32.A Depression, unspecified; R79.89 Other specified abnormal findings of blood chemistry; Z90.49 Acquired absence of other specified parts of digestive tract; Z96.653 Presence of artificial knee joint, bilateral; Z90.710 Acquired absence of both cervix and uterus; Z98.890 Other specified postprocedural states; Z91.040 Latex allergy status; Z79.899 Other long term (current) drug therapy
CPT/HCPCS: 71275; 74174; 80048; 80053; 80061; 81001; 83036; 83690; 83735; 83880; 84484 ×3; 85025 ×2; 93005; 96374; 96375; 99285; J2270; J2930; J7050; 36415; G0378; Q9967

== ENCOUNTER 2024-05-27 16:03 | Outpatient (CLI) | payer MEDICARE | END 2024-05-27 16:04 | disposition home or self-care (01) | LOC: SCSRAD 16:03 | DX: R06.00 Dyspnea, unspecified (principal) | CPT/HCPCS: 71046 ==